=== PATIENT | female | born 1955 | race Caucasian/White ===

== ENCOUNTER 2016-06-20 09:43 | Outpatient (CLI) | payer BC ==
[2015-02-16 11:06] VITALS: BP 115/67
== END 2016-06-20 09:44 ==
LOC: LAB 09:43
PROVIDERS: ATTEND Family Medicine
DX: E11.9 Type 2 diabetes mellitus without complications (principal)
CPT/HCPCS: 36415; 82043; 83036

== ENCOUNTER 2016-12-21 08:40 | Outpatient (CLI) | payer BC ==
[2015-02-16 11:06] VITALS: BP 115/67
[2016-12-21 09:26] LABS: eGFR (African) > 60; eGFR (Non-African) > 60
== END 2016-12-21 08:42 ==
LOC: LAB 08:40
PROVIDERS: ATTEND Family Medicine
DX: E11.9 Type 2 diabetes mellitus without complications (principal); Z12.4 Encounter for screening for malignant neoplasm of cervix
CPT/HCPCS: 36415; 80053; 80061; 83036; 88148; G0143

== ENCOUNTER 2017-06-26 08:41 | Outpatient (CLI) | payer BC ==
[2015-02-16 11:06] VITALS: BP 115/67
== END 2017-06-26 08:42 ==
LOC: LAB 08:41
PROVIDERS: ATTEND Family Medicine
DX: E11.9 Type 2 diabetes mellitus without complications (principal)
CPT/HCPCS: 36415; 83036

== ENCOUNTER 2017-12-25 08:56 | Outpatient (CLI) | payer BC ==
[2015-02-16 11:06] VITALS: BP 115/67
[2017-12-25 09:46] LABS: eGFR (Non-African) > 60
== END 2017-12-25 09:00 ==
LOC: LAB 08:56
PROVIDERS: ATTEND Family Medicine
DX: E78.2 Mixed hyperlipidemia (principal); E11.9 Type 2 diabetes mellitus without complications
CPT/HCPCS: 36415; 80053; 80061; 83036

== ENCOUNTER 2018-07-09 10:20 | Outpatient (CLI) | payer OTHER ==
[2015-02-16 11:06] VITALS: BP 115/67
== END 2018-07-09 10:22 ==
LOC: LAB 10:20
PROVIDERS: ATTEND Family Medicine
DX: E11.9 Type 2 diabetes mellitus without complications (principal)
CPT/HCPCS: 36415; 82043; 83036

== ENCOUNTER 2019-01-14 16:00 | Outpatient (CLI) | payer OTHER ==
[2015-02-16 11:06] VITALS: BP 115/67
== END 2019-01-14 16:05 ==
LOC: LABRHC 16:00
PROVIDERS: ATTEND Family Medicine
DX: Z12.4 Encounter for screening for malignant neoplasm of cervix (principal)
CPT/HCPCS: 88148; G0143